=== PATIENT | male | born 1955 | race Caucasian/White ===

== ENCOUNTER 2020-01-15 10:11 | Emergency (ER) | payer OTHER, SELFPAY ==
[2020-01-15 10:13] VITALS: BP 158/103; PULSE 92; RESP 17; TEMP 36.6; O2SAT 97; BMI 27.4
--- NOTE | 2020-01-15 10:28 | CT_ITS ---
STUDY: CT ABDOMEN AND PELVIS WITH CONTRAST REASON FOR EXAM: Male, 64 years old. RLQ PAIN RADIATION DOSAGE (If Supplied By Facility): CTDIvol = ( 13.65 ) mGy, DLP = ( 924.49 ) mGycm TECHNIQUE: Transaxial images were obtained from the dome of the diaphragm to the symphysis pubis with oral contrast. Oral and amp; IV Gastrografin and amp; 100mL Isovue-300 was administered. Sagittal and coronal images were reconstructed. Individualized dose optimization techniques were used for this CT. COMPARISON: None. FINDINGS: There is a 4.5 mm nodule in the posterior aspect of the lingular segment of the left upper lobe The visualized portions of the heart are within normal limits. There is decreased attenuation of the liver consistent with steatosis. Normal gallbladder and extrahepatic biliary system. Normal spleen. Normal pancreas. There is symmetric enlargement of the adrenal glands suggesting adrenal hyperplasia. Normal right kidney. Normal left kidney. Normal visualized stomach. Normal small intestine. There is a 5.3 cm x 5.2 cm x 5.5 cm soft tissue mass involving the cecum. There is evidence of thickening of the haustral pattern of the ascending colon. A neoplastic process should be ruled out. Small lymph nodes are seen in the mesenteric fat in the right lower quadrant. Mild increased markings in the surrounding peritoneal fat. Sigmoid diverticulosis. The appendix appears to be unremarkable. There is diffuse atherosclerotic calcification of the abdominal aorta, without a demonstrated aneurysm. Normal inferior vena cava. There is borderline retroperitoneal lymphadenopathy with enlarged nodes no greater than 10mm in the short axis diameter. Normal urinary bladder. There is enlargement of the prostate gland. It measures 5.6 cm x 5.9 cm. This causes indentation at the bladder base. There are bilateral inguinal hernias containing adipose tissue. Normal osseous structures. CT/Abdomen/Pelvis WITH Contrast IMPRESSION: Mass lesion in the region of the cecum with thickening of the haustral pattern of the ascending colon. A neoplastic process should be ruled out. Prostatic enlargement with indentation at the bladder base. Electronically Signed: Pineda Beasley, at 12:22 EDT , Service support ,
[2020-01-15] MEDS: 0.9% Normal Saline 1,000 ML 1000 ML IV (10:30)
--- NOTE | 2020-01-15 10:30 | ED.VIS.GEN ---
History of Present Illness Chief Complaint: Abd Pain Informant: Patient, PCP Narrative: Patient presents the emergency department on day 3 of right lower quadrant pain. Patient states that last week he had some cabassa and had a couple days of gas. He had spaghetti and had even more gas. On Wednesday he woke with right lower quadrant pain that radiated up towards his epigastrium. He thought that perhaps he was constipated so he took a stool softener which was effective but did not change his pain. He notes that Wednesday the pain was still present but a little bit less. He states he did not have anything to eat on Wednesday or today. He went to his primary care physician's office today was referred to the emergency department. Patient denies any prior abdominal surgeries. He states that 20+ years ago he had a gallbladder attack and states this feels nothing like it. Patient denies any fevers. No urinary symptoms. Past Medical History - Allergies and Home Meds Allergies/Adverse Reactions: Allergies No Known Allergies Allergy (Verified 01/15/20 10:13) Primary Care Physician: Jesus Soliz MD [Primary Care Provider] - Review of Systems General: Denies: Chills, Fever, Sweats Eyes: Denies: Visual changes - bilaterally, Diplopia ENT: Denies: Rhinorrhea, Sore throat Cardiovascular: Denies: Chest pain, Palpitations Respiratory: Denies: Dyspnea, Cough, Dyspnea on exertion Gastrointestinal: Reports: Abdominal pain. Denies: Nausea, Vomiting, Diarrhea, Melena, Hematochezia Genitourinary: Denies: Dysuria, Hematuria, Frequency Musculoskeletal: Denies: Back pain, Extremity Pain Skin: Denies: Rash, Wounds Neurological: Denies: Headache, Weakness, Numbness Physical Exam Vital Signs/Narrative: Vital Signs Temp Pulse Resp BP Pulse Ox 01/15/20 10:13 97.9 F 92 17 158/103 H 97 Inital Vital Signs reviewed: Yes General: Well nourished, Well developed, No Acute Distress Head: Normocephalic, Atraumatic Eyes: Perrl, EOMI ENT: Moist mucous membranes, No rhinorrhea Neck: Supple, Nontender Cardiovascular: Regular rate, Regular rhythm, No murmurs Respiratory: No distress, CTA bilaterally, Chest nontender Abdomen: Soft, Nondistended, Normal bowel sounds, Tender, Guarding Back: Nontender, Normal Inspection Extremities: Nontender, No edema Skin: Normal color, No rash Neurological: Alert, Oriented x3, Cranial nerves II-XII grossly intact, Normal Strength, Normal Sensation Psychological: Normal affect, Normal Mood Diagnostic/Tx/Re-eval - Medical Decision Making Basic labs were negative. Normal white count. CT of the abdomen pelvis with oral and IV contrast was obtained. There is a 5.3 cm x 5.2 cm x 5.5 cm soft tissue mass involving the cecum. There is evidence of thickening of the haustral pattern of the ascending colon. Small lymph nodes are seen in the mesenteric fat in the right lower quadrant. Mild increased markings in the surrounding peritoneal fat noted. The appendix appears unremarkable. Upon receipt of the findings I spoke with the patient and contacted Dr. Crain (approx 1230 hours) and he has come to the emergency department and spoken with the patient. Plan will be a colon prep today with colonoscopy tomorrow. I updated Dr. Soliz who sent the patient in from his office. ED Disposition - Plan for ED Patient: Disposition: Home or Assisted Living Diagnosis: Cecum mass, Acute abdominal pain Referrals: Jesus Soliz MD [Primary Care Provider] - Keep Amy appointment Joey Crain MD [STAFF PHYSICIAN] - Keep [facility] appointment
[2020-01-15 10:39] LABS: Absolute Lymphocyte Count 2.36 X10^3/uL (0.83-4.51); Absolute Neutrophil Count 6.5 X10^3/uL (2.0-7.7); Basophil# 0.06 X10^3/uL; Basophil% 0.6 % (0-1); Eosinophil# 0.24 X10^3/uL; Eosinophils% 2.4 % (0-5); Hematocrit 48.1 % (40-54); Hemoglobin 16.4 g/dL (13.0-16.5); Lymphocyte # 2.36 X10^3/ul (4.0); Lymphocyte % 23.3 % (19-41); Mean Corp Hgb Conc 34.1 g/dL (32-36); Mean Corpuscular Hgb 30.9 pg (27.0-32.0); Mean Corpuscular Volume 90.6 fL (80-94); Mean Platelet Vol. 10.7 fl (6.2-12.0); Monocyte% 8.9 % (0-10); NRBC Flagged by Analyzer 0 % (0-5); Neutrophil # 6.53 X10^3/uL (2.7-7.7); Neutrophil % 64.5 % (47-70); Platelet Count 226 K/mm3 (150-450); RBC Distribution Width CV 13.8 % (11.6-14.6); RBC Distribution Width SD 45.5 fl (35.1-43.9); Red Blood Count 5.31 M/mm3 (4.6-6.2); White Blood Count 10.1 K/mm3 (4.4-11.0)
[2020-01-15 10:54] LABS: ALB/GLOB Ratio 0.8 RATIO (0.9-2.4); AST(SGOT) 16 U/L (15-37); Alanine Aminotransfer ALT/SGPT 21 U/L (16-61); Albumin, Serum 3.7 g/dL (3.2-5.0); Alkaline Phosphatase 110 U/L (45-117); Anion Gap 4 (5-15); BUN 24 mg/dL (7-18); BUN/Creat Ratio 18.5 RATIO (10-20); Calcium,Total 9.3 mg/dL (8.5-10.1); Chloride 108 mmol/L (98-107); EST Glomerular Filtration Rate 59 mL/min (>60); Est Glom Filt Rate - Afr Amer 71 mL/min (>60); Estimated Creatinine Clearance 62.18 ml/min; Globulin 4.5 g/dL (2.2-4.2); Glucose 110 mg/dL (74-106); Lipase 60 U/L (73-393); Potassium 4.5 mmol/L (3.5-5.1); Protein, Total 8.2 g/dL (6.4-8.2); Sodium Level 140 mmol/L (136-145)
[2020-01-15 11:41] LABS: Red Blood Cells-Urine 0 SEEN /hpf (0-5)
[2020-01-15 11:46] LABS: Color, Urine Yellow (Yellow); Glucose, Dipstick Normal (Normal); Ketone-Dipstick 5 mg/dl (Negative); Leukocyte Esterase-Dipstick 25 /ul (Negative); Nitrite-Dipstick Negative (Negative); Occult Blood-Urine Negative /ul (Negative); Protein-Dipstick 15 mg/dl (Negative); Specific Gravity, Urine 1.025 (1.002-1.030); Urine Bilirubin Dipstick Negative (Negative); Urine Clarity Sl. Cloudy (Clear); Urine Urobilinogen 1 mg/dl (Normal)
[2020-01-15 11:53] LABS: Bacteria RARE /hpf (None Seen); Hyaline Cast 0-5 SEEN /lpf (0-5); Mucous, Urine 2+ /hpf (<or=2+); Squamous Epithelial Cells - UA 0-5 SEEN /hpf (0-5); White Blood Cells 0-5 SEEN /hpf (0-5)
[2020-01-15 13:56] VITALS: BP 173/101; PULSE 85; RESP 18; O2SAT 94
--- NOTE | 2020-01-15 14:06 | HP.PCM_ITS ---
Problem List (1) Acute abdominal pain Status: Acute (2) Cecum mass Status: Acute History of Present Illness Date of Admission: 01/15/20 The patient is a 64 year old M presents to the emergency room with right lower quadrant pain of 3 days durations. There is no radiation of pain. The patient is not having any blood in his stool or nausea or vomiting. The patient reports that he had a colonoscopy 1 year ago which was abnormal and the area of the ileocecal valve and he was recommended to have a CT scan with contrast but he refused. They recommended repeating colonoscopy 1 year later which was this past October. Past Medical History Allergies No Known Allergies Allergy (Verified 01/15/20 10:13) Home Medications: Ambulatory Orders Medication Instructions Recorded NK 01/15/20 Surgical History: no surgical history Smoking Status: Current every day smoker - *Family History Maternal History Items: No pertinent history Review of Systems Constitutional: Denies: Anorexia, Chills, Fever HEENT: Denies: Difficulty Swallowing Cardiovascular: Denies: Chest Pain Respiratory: Denies: Cough, Shortness of Breath Gastrointestinal: Reports: Abdominal Pain. Denies: Constipation, Diarrhea, Hematemesis, Hematochezia, Nausea, Melena, Vomiting Skin: Denies: Jaundice Neurological: Denies: Balance problems Hematologic/ Lymphatic: Denies: Anemia VTE Information - Inpt Only VTE Present on Admission: No VTE Mechan Device Prophylaxis: SCD's - Physical Exam Vitals/I&O's: Vital Signs Temp Pulse Resp BP Pulse Ox 97.9 F 85 18 173/101 H 94 01/15/20 10:13 01/15/20 13:56 01/15/20 13:56 01/15/20 13:56 01/15/20 13:56 Oxygen Delivery Method Room Air Weight: 202 lb 9.677 oz Body Mass Index (BMI) 27.4 Intake and Output for Last 24 Hours 01/13/20 01/14/20 01/15/20 23:59 23:59 23:59 Intake Total 1000 / 1000 Balance 1000 / 1000 General: Alert, Oriented x3 Neck: No JVD Lungs: Normal air movement Cardiovascular: Regular rate, Regular Rhythm Abdomen: Soft, Non-Distended, Tender Musculoskeletal: No Muscle Wasting Neurological: Cranial nerves II-XII grossly intact Psych/Mental Status: Normal Affect Laboratory Results 01/15/20 10:30: WBC 10.1, RBC 5.31, Hgb 16.4, Hct 48.1, MCV 90.6, MCH 30.9, MCHC 34.1, RDW Std Deviation 45.5 H, RDW Coeff of Carlos Manuel 13.8, Plt Count 226, MPV 10.7, Immature Gran % (Auto) 0.300, Neut % (Auto) 64.5, Lymph % (Auto) 23.3, [place] % (Auto) 8.9, Eos % (Auto) 2.4, Baso % (Auto) 0.6, Absolute Neuts (auto) 6.5, Absolute Lymphs (auto) 2.36, Nucleated RBC % 0 01/15/20 10:30: Sodium 140, Potassium 4.5, Chloride 108 H, Carbon Dioxide 28.0, Anion Gap 4 L, BUN 24 H, Creatinine 1.30, Estim Creat Clear Calc 62.18, Est GFR (MDRD) Af Amer 71, Est GFR (MDRD) Non-Af 59 L, BUN/Creatinine Ratio 18.5, Glucose 110 H, Calcium 9.3, Total Bilirubin 0.60, AST 16, ALT 21, Alkaline Phosphatase 110, Total Protein 8.2, Albumin 3.7, Globulin 4.5 H, Albumin/G lobulin Ratio 0.8 L, Lipase 60 L 01/15/20 11:38: Urine Color Yellow, Urine Clarity Sl. Cloudy, Urine pH 5.0, Ur Specific [place] 1.025, Urine Protein 15 H, Urine Glucose (UA) Normal, Urine Ketones 5 H, Urine Occult Blood Negative, Urine Nitrite Negative, Urine Bilirubin Negative, Urine Urobilinogen 1 H, Ur Leukocyte Esterase 25 H, Urine RBC 0 SEEN, Urine WBC 0-5 SEEN, Ur Squamous Epith Cells 0-5 SEEN, Urine Bacteria RARE, Hyaline Casts 0-5 SEEN, Urine Mucus 2+ Clinical Impression(s) from Imaging Studies Abdomen/Pelvis CT 01/15/20 10:28 IMPRESSION: Mass lesion in the region of the cecum with thickening of the haustral pattern of the ascending colon. A neoplastic process should be ruled out. Prostatic enlargement with indentation at the bladder base. Electronically Signed: Pineda Beasley, at 12:22 EDT , Service support , Assessment/Plan All Active Problems Cecum mass (Acute) Acute abdominal pain (Acute) 64-year-old male with possible right lower quadrant mass 1. The patient has right lower quadrant pain of 3-day duration. CT scan reveals thickening in the right lower quadrant and a possible cecal mass. There is no sign of obstruction. The patient reports having a colonoscopy 1 year ago and was recommended to have one this past October but did not. The patient wants to go home and come back tomorrow for his colonoscopy. I have given him bowel prep instructions and I discussed colonoscopy with him. He will have a colonoscopy tomorrow at 11 AM. Hemoglobin is normal. 2. I explained endoscopy in detail to the patient. I explained the risks including but not limited to stroke or heart attack with anesthesia, perforation of the GI tract, bleeding, infection. I explained that any of these could necessitate further emergency surgery. The patient understands and all questions were answered sufficiently. The patient wishes to proceed with procedure. Joey Crain MD Pager: [facility] [address] [place] [address] [address] [place] [address] Office:
== END 2020-01-15 13:57 | disposition home or self-care (01) ==
PROVIDERS: Emergency Provider Emergency Medicine; PCP Family Medicine
DX: K63.9 Disease of intestine, unspecified (principal); R10.31 Right lower quadrant pain; N40.0 Benign prostatic hyperplasia without lower urinary tract symptoms; Z79.899 Other long term (current) drug therapy; F17.200 Nicotine dependence, unspecified, uncomplicated
CPT/HCPCS: 74177; 80053; 81001; 83690; 85025; 96360; 96361; 99283; J7030; Q9967; A4216

== ENCOUNTER 2020-01-16 09:48 | Day surgery (SDC) | payer OTHER, SELFPAY ==
[2020-01-15 10:13] VITALS: BMI 27.4
[2020-01-16] VITALS (7 sets, daily range): BP systolic 116–131; BP diastolic 87–95; PULSE 74–93; RESP 16–18; TEMP 36.3–36.9; O2SAT 92–97; BMI 26.6
--- NOTE | 2020-01-16 10:16 | PCM.HP.BLA ---
Problem List (1) Cecum mass Status: Acute History and Physical Date of Admission: 01/16/20 History and Physical 01/15/20 1406 MR#: [id number] Acct: [id number] Name: MALIHA PEREZ III Rep #: [id number] : 1955 64 From: Joey Crain MD PCP: Dr. Jesus Soliz MD Status: DEP ER Y Location: ED Problem List (1) Acute abdominal pain Status: Acute (2) Cecum mass Status: Acute History of Present Illness Date of Admission: 01/15/20 The patient is a 64 year old M presents to the emergency room with right lower quadrant pain of 3 days durations. There is no radiation of pain. The patient is not having any blood in his stool or nausea or vomiting. The patient reports that he had a colonoscopy 1 year ago which was abnormal and the area of the ileocecal valve and he was recommended to have a CT scan with contrast but he refused. They recommended repeating colonoscopy 1 year later which was this past October. Past Medical History Allergies No Known Allergies Allergy (Verified 01/15/20 10:13) Home Medications: Ambulatory Orders Medication Instructions Recorded NK 01/15/20 Surgical History: no surgical history Smoking Status: Current every day smoker - *Family History Maternal History Items: No pertinent history Review of Systems Constitutional: Denies: Anorexia, Chills, Fever HEENT: Denies: Difficulty Swallowing Cardiovascular: Denies: Chest Pain Respiratory: Denies: Cough, Shortness of Breath Gastrointestinal: Reports: Abdominal Pain. Denies: Constipation, Diarrhea, Hematemesis, Hematochezia, Nausea, Melena, Vomiting Skin: Denies: Jaundice Neurological: Denies: Balance problems Hematologic/ Lymphatic: Denies: Anemia VTE Information - Inpt Only VTE Present on Admission: No VTE Mechan Device Prophylaxis: SCD's - Physical Exam Vitals/I&O's: Vital Signs Temp Pulse Resp BP Pulse Ox 97.9 F 85 18 173/101 H 94 01/15/20 10:13 01/15/20 13:56 01/15/20 13:56 01/15/20 13:56 01/15/20 13:56 Oxygen Delivery Method Room Air Weight: 202 lb 9.677 oz Body Mass Index (BMI) 27.4 Intake and Output for Last 24 Hours 01/13/20 01/14/20 01/15/20 23:59 23:59 23:59 Intake Total 1000 / 1000 Balance 1000 / 1000 General: Alert, Oriented x3 Neck: No JVD Lungs: Normal air movement Cardiovascular: Regular rate, Regular Rhythm Abdomen: Soft, Non-Distended, Tender Musculoskeletal: No Muscle Wasting Neurological: Cranial nerves II-XII grossly intact Psych/Mental Status: Normal Affect Laboratory Results 01/15/20 10:30: WBC 10.1, RBC 5.31, Hgb 16.4, Hct 48.1, MCV 90.6, MCH 30.9, MCHC 34.1, RDW Std Deviation 45.5 H, RDW Coeff of Carlos Manuel 13.8, Plt Count 226, MPV 10.7, Immature Gran % (Auto) 0.300, Neut % (Auto) 64.5, Lymph % (Auto) 23.3, [place] % (Auto) 8.9, Eos % (Auto) 2.4, Baso % (Auto) 0.6, Absolute Neuts (auto) 6.5, Absolute Lymphs (auto) 2.36, Nucleated RBC % 0 01/15/20 10:30: Sodium 140, Potassium 4.5, Chloride 108 H, Carbon Dioxide 28.0, Anion Gap 4 L, BUN 24 H, Creatinine 1.30, Estim Creat Clear Calc 62.18, Est GFR (MDRD) Af Amer 71, Est GFR (MDRD) Non-Af 59 L, BUN/Creatinine Ratio 18.5, Glucose 110 H, Calcium 9.3, Total Bilirubin 0.60, AST 16, ALT 21, Alkaline Phosphatase 110, Total Protein 8.2, Albumin 3.7, Globulin 4.5 H, Albumin/Globulin Ratio 0.8 L, Lipase 60 L 01/15/20 11:38: Urine Color Yellow, Urine Clarity Sl. Cloudy, Urine pH 5.0, Ur Specific [place] 1.025, Urine Protein 15 H, Urine Glucose (UA) Normal, Urine Ketones 5 H, Urine Occult Blood Negative, Urine Nitrite Negative, Urine Bilirubin Negative, Urine Urobilinogen 1 H, Ur Leukocyte Esterase 25 H, Urine RBC 0 SEEN, Urine WBC 0-5 SEEN, Ur Squamous Epith Cells 0-5 SEEN, Urine Bacteria RARE, Hyaline Casts 0-5 SEEN, Urine Mucus 2+ Clinical Impression(s) from Imaging Studies Abdomen/Pelvis CT 01/15/20 10:28 IMPRESSION: Mass lesion in the region of the cecum with thickening of the haustral pattern of the ascending colon. A neoplastic process should be ruled out. Prostatic enlargement with indentation at the bladder base. Electronically Signed: Pineda Beasley, at 12:22 EDT , Service support , Assessment/Plan All Active Problems Cecum mass (Acute) Acute abdominal pain (Acute) 64-year-old male with possible right lower quadrant mass 1. The patient has right lower quadrant pain of 3-day duration. CT scan reveals thickening in the right lower quadrant and a possible cecal mass. There is no sign of obstruction. The patient reports having a colonoscopy 1 year ago and was recommended to have one this past October but did not. The patient wants to go home and come back tomorrow for his colonoscopy. I have given him bowel prep instructions and I discussed colonoscopy with him. He will have a colonoscopy tomorrow at 11 AM. Hemoglobin is normal. 2. I explained endoscopy in detail to the patient. I explained the risks including but not limited to stroke or heart attack with anesthesia, perforation of the GI tract, bleeding, infection. I explained that any of these could necessitate further emergency surgery. The patient understands and all questions were answered sufficiently. The patient wishes to proceed with procedure. Joey Crain MD Pager: [facility] [address] [place] [address], [address] [place] [address] Office: Essential Procedure Criteria Procedure Essential: Yes Criteria Note: On 11/21/2019 the [place] Department of Health ([facility]) Public Order signed by [facility] Director Saranya Nobles M.D., regarding the Management of Non-Essential Surgeries and Procedures for the purpose of preserving Personal Protective Equipment (PPE) and critical hospital capacity and resources within [place] went into effect as of 11/22/2019 at 5:00PM. According to the [facility] Public Order: This action will remain in full force and effect until the State of Emergency declared by the Governor no longer exists or the Director of the [facility] rescinds or modifies this Order.. This OD order stated all non-essential or elective surgeries and procedures that utilize PPE should be delayed unless there is undue risk to the current or future health of a patient. After reviewing the aforementioned [facility] Public Order and the patients clinical case, I have determined that the scheduled procedure meets the criteria to go forward. Risk to Patient if Procedure Delayed: Risk of metastasis or progression of staging if delayed
--- NOTE | 2020-01-16 11:00 | COLBX_PTH ---
PATIENT: MALIHA PEREZ III LOC: EN U#:[id number] AGE/SX: 64/M ROOM: RE01/16/[address]: Dr. Joey Crain MD : 1955 BED: DIS: 01/16/2020 SPEC #: [id number] RECD: 01/16/20 12:48 STATUS: ALVARO QUINONES #: [id number] KEVIN: 01/16/20 11:[address]: Joey Crain DEPT: SURGICAL PATHOLOGY RECD BY: Carolyn Webb ENTERED: 01/17/20 09:37 SP TYPE: COLON BX OTHR DR: Dr. Jesus Soliz MD Tissues: Ileum, NOS Procedures: Surgery Specimen Level IV HEADER OPERATION: Colonoscopy (MAC) PRE-OP DIAGNOSIS: Cecal mass, abdomen pain TISSUE SUBMITTED: Ileocecal valve biopsy MICROSCOPIC DIAGNOSIS Ileocecal valve, biopsy: Focal ulceration and associated mild acute colitis. See comment. AM:christen 01/18/20 COMMENT Ischemic change with associated colitis cannot be excluded. There is no evidence of malignancy. Clinical correlation is necessary. MICROSCOPIC DESCRIPTION Slides are reviewed. GROSS DESCRIPTION Received in fixative is one container labeled with the patient's name and designated ileocecal valve biopsy. The specimen consists of multiple irregular fragments of light alvarez soft tissue that in aggregate measure 2.2 x 0.6 x 0.1 cm. The specimen is totally submitted in one cassette. / AM:christen 01/17/20 TC:2 CPT: 58307
--- NOTE | 2020-01-16 11:23 | OP.CCLET_ITS ---
01/16/2020 Jesus Soliz Re : Colonoscopy procedure for Perry Chavez Dear Martínez This procedure was performed on Thursday, January 16, 2020. 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 Biopsied. - The examination was otherwise normal on direct and retroflexion views. Recommendations : - Discharge patient to home. - Resume previous diet. - Continue present medications. - Await pathology results. - Repeat colonoscopy for surveillance based on pathology results. - Return to my office in 1 week. My findings are described in the full procedure note, which is enclosed. If I can be of further assistance, please feel free to contact me at Doctor phone number(s): , Work: . Sincerely, Joey Crain MD 01/16/2020 11:23:07 AM This report has been signed electronically.
--- NOTE | 2020-01-16 11:23 | OP.COLON_ITS ---
Patient Name: Perry Chavez Procedure Date: 01/16/2020 10:10 AM Date of : 1955 Age: 64 Procedure: Colonoscopy Indications: Abnormal CT of the GI tract Providers: Joey Crain MD Medicines: Monitored Anesthesia Care Patient Profile: This is a 64 year old male. Refer to note in patient chart for documentation of history and physical. Last Colonoscopy: 1 year ago. Complications: No immediate complications. Estimated blood loss: Minimal. Procedure: Pre-Anesthesia Assessment: - Prior to the procedure, a History and Physical was performed, and patient medications and allergies were reviewed. The patient's tolerance of previous anesthesia was also reviewed. The risks and benefits of the procedure and the sedation options and risks were discussed with the patient. All questions were answered, and informed consent was obtained. Prior Anticoagulants: The patient has taken no previous anticoagulant or antiplatelet agents. After reviewing the risks and benefits, the patient was deemed in satisfactory condition to undergo the procedure. After I obtained informed consent, the scope was passed under direct vision. Throughout the procedure, the patient's blood pressure, pulse, and oxygen saturations were monitored continuously. The Colonoscope was introduced through the anus and advanced to the terminal ileum. The colonoscopy was performed without difficulty. The patient tolerated the procedure well. The quality of the bowel preparation was good. Scope In: 10:58:47 AM Scope Withdrawal Time 0 hours 11 minutes 53 seconds Scope Out: 11:14:50 AM Total Procedure Duration Time 0 hours 16 minutes 3 seconds Findings: A fungating partially obstructing large mass was found at the ileocecal valve. The mass was circumferential. No bleeding was present. This was biopsied with a cold forceps for histology. The exam was otherwise without abnormality on direct and retroflexion views. 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 Biopsied. - The examination was otherwise normal on direct and retroflexion views. Recommendation: - Discharge patient to home. - Resume previous diet. - Continue present medications. - Await pathology results. - Repeat colonoscopy for surveillance based on pathology results. - Return to my office in 1 week. Procedure Code(s): --- Professional --- 48134, Colonoscopy, flexible; with biopsy, single or multiple Diagnosis Code(s): --- Professional --- D49.0, Neoplasm of unspecified behavior of digestive system K56.690, Other partial intestinal obstruction R93.3, Abnormal findings on diagnostic imaging of other parts of digestive tract CPT copyright 2017 [employer]. All rights reserved. The codes documented in this report are preliminary and upon remote inpatient coder review may be revised to meet current compliance requirements. Joey Crain MD 01/16/2020 11:23:07 AM This report has been signed electronically. Number of Addenda: 0 Note Initiated On: 01/16/2020 10:10 AM
[2020-01-17 05:06] LABS: Carcinoembryonic Antigen 2.3 ng/mL (0.0-4.7)
== END 2020-01-16 12:22 | disposition home or self-care (01) ==
LOC: EN 09:51 → AC 09:51
PROVIDERS: PCP Family Medicine; Referring Provider Family Medicine; Visit Provider Surgery
PROC: 0DJD8ZZ Inspection of Lower Intestinal Tract, Via Natural or Artificial Opening Endoscopic (ICD-10-PCS; CPT 45378; principal; 2020-01-16 10:55)
DX: D49.0 Neoplasm of unspecified behavior of digestive system (principal); K63.9 Disease of intestine, unspecified; K56.690 Other partial intestinal obstruction; K52.9 Noninfective gastroenteritis and colitis, unspecified; R93.3 Abnormal findings on diagnostic imaging of other parts of digestive tract; N40.0 Benign prostatic hyperplasia without lower urinary tract symptoms; F17.200 Nicotine dependence, unspecified, uncomplicated; Z79.899 Other long term (current) drug therapy
CPT/HCPCS: 45380; 36415; 82378; 88305; J7120

== ENCOUNTER 2020-02-08 06:43 | Inpatient (IN) | payer OTHER, MEDICARE, SELFPAY ==
[2020-01-23 14:01] VITALS: BMI 27.6
--- NOTE | 2020-01-24 08:17 | HP_ITS ---
Intake Vital Signs 01/23/20 Height 6 ft 01/23/20 Weight: 204 lb 01/23/20 BMI 27.6 01/23/20 BP 113/84 H 01/23/20 Blood Pressure Location Rt brachial 01/23/20 Position Sitting 01/23/20 Respiration 18 01/23/20 Pulse 83 01/23/20 Temp 97.9 F 01/23/20 Temp Source Temporal 01/23/20 BMI 26.6 Intake Visit Reasons: C-SCOPE RESULTS & DISCUSS SURGERY Contact Center Associate Required: No Is patient in pain?: No Allergies No Known Allergies Allergy (Verified 01/23/20 14:01) Medications Albuterol Inhaler [Ventolin Hfa (SP)] 2 puff INHALATION Q6H PRN PRN 01/15/20 [History Confirmed 01/15/20] Budesonide/Formoterol 160/4.5 [Symbicort 160/4.5 Mcg Inhaler (SP)] 2 puff INHALATION QHS 01/15/20 [History Confirmed 01/15/20] metoprolol tartrate 50 mg tablet 50 mg PO DAILY 01/23/20 [History Confirmed 01/23/20] PFSH Medical History COPD (chronic obstructive pulmonary disease) (Chronic) Hypertension (Chronic) Surgical History Status post skin graft (Acute) Family History Father CAD (coronary artery disease) Social History (Updated 01/24/20 @ 08:[address] Joey Crain MD) Smoking Status: Current every day smoker alcohol intake: never HPI HPI HPI: MALIHA PEREZ, is a 64 M who presents to the office today for HPI HPI Surgical H&P: Yes HPI: MALIHA PEREZ, is a 64 M who presents to the office today for Follow-up after colonoscopy. Patient reports he is still having weight loss but no abdominal pain at this time. Patient reports that his father had a hemicolectomy for a similar circumstance where there was an unknown mass in the colon and it turned out not to be cancerous.The patient does not describe any blood in his stool or diarrhea. ROS General General: Yes weight change; no fatigue Musc Musculoskeletal: Yes back problems Cardio Cardiovascular: No murmur, pacemaker, heart disease, atrial fibrillation, high blood pressure, heart attack, heart stent, palpitations, shortness of breat with exertion or chest pain Psych Psychiatric: No depression or anxiety Resp Respiratory: No shortness of breath, No sleep apnea, No cough, Yes COPD, No asthma, No emphysema, No wheezing Gastro Gastrointestinal: Yes abdominal pain, No nausea or vomiting, No diarrhea, No constipation, No blood in stool, No acid reflux, Yes hemorrhoids, No ulcers, Yes gallbladder problem, No black,tarry stools Homero Hematologic: No blood thinners Exam Const General: cooperative Orientation: alert, oriented x3 Resp Effort & Inspection: normal respiratory effort Auscultation: clear to auscultation bilaterally Cardio Rate: regular rate Rhythm: regular rhythm Heart Sounds: no murmurs GI Inspection: non-distended Palpation: soft, nontender Assessment & Plan Problems 1. 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 The patient had a CT scan once he was in the emergency room the night before. The CT scan revealed a mass in the cecum with lymphadenopathy in the mesentery. During colonoscopy the patient had a mass there was cecal valve and it was firm during biopsy. The mass was able to be traversed and the distal ileum appeared normal. Pathology from his biopsies only revealed colitis. There was no malignancy identified. The patient notes that he had an abnormal colonoscopy 1 year ago with a mass of the ileocecal valve and he was recommended to have a CT at that time but never had it. I am unsure as to the etiology of his cecal mass. I am unable to fully say that this is not malignant in nature. I discussed this with the patient in detail and I did offer him a right hemicolectomy versus continued observation but I do believe that if this was there a year ago it is not going away and it is partially obstructing with constriction of the ileocecal valve. I discussed laparoscopic right hemicolectomy with the patient in detail. I discussed the risks including but not limited to bleeding, infection, injury to surrounding organs such as the ureter, bladder, bowels. I also discussed ERAS protocol with him. I will order him a mechanical and antibiotic bowel prep and schedule him for a laparoscopic right hemicolectomy. We discussed the current risks associated with COVID-19. While it is understood that there is a community spread of COVID-19, the risk of dick COVID-19 while at [facility] ([facility]) is very low; however, the risk cannot be completely mitigated because of the community spread of the disease. We discussed in detail the risk of exposure to and/or potential harm posed by the COVID-19 virus with having a surgery/procedure at this time versus the risk of delaying the surgery/procedure. It is not possible to know either the risk of delaying the surgery or procedure or chance of getting an infection with perfect accuracy, but a joint decision was made to proceed at this time with the scheduled surgery/procedure as indicated on the consent form. Patient was notified that we will need to comply with any screening or testing [facility] wishes to perform or that surgery may be delayed for any positive results. 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 There are no clinical changes since date of exam.
--- NOTE | 2020-02-06 13:53 | EKG12_ITS ---
Test Reason : PRE OP Blood Pressure : / mmHG Vent. Rate : 076 BPM Atrial Rate : 076 BPM P-R Int : 180 ms QRS Dur : 084 ms QT Int : 372 ms P-R-T Axes : 065 070 071 degrees QTc Int : 418 ms Normal sinus rhythm Normal ECG Confirmed by DEAN ALMENDAREZ, TRUNG ([id number]), senior editor YANETH KULKARNI ([id number]) on 02/07/2020 9:30:58 AM Referred By: Joey Crain Confirmed By:TRUNG MORAN MD
[2020-02-08] VITALS (16 sets, daily range): BP systolic 117–161; BP diastolic 64–91; PULSE 61–93; RESP 16–20; TEMP 36.1–36.8; O2SAT 90–98; BMI 26.6
--- NOTE | 2020-02-08 | COL._PTH ---
PATIENT: MALIHA PEREZ III LOC: MS3 U#:[id number] AGE/SX: 64/M ROOM: MS314 RE02/08/[address]: Dr. Joey Crain MD : [id number] BED: 1 DIS: 02/11/2020 SPEC #: [id number] RECD: 02/08/20 13:16 STATUS: ALVARO QUINONES #: [id number] KEVIN: 02/08/20 00:[address]: Joey Crain DEPT: SURGICAL PATHOLOGY RECD BY: Rajeev Fuentes ENTERED: 02/08/20 13:16 SP TYPE: COLON OTHR DR: Dr. Jesus Soliz MD Tissues: Colon, NOS Procedures: Surgery Specimen Level V HEADER OPERATION: ERAS, laparoscopic hemicolectomy PRE-OP DIAGNOSIS: Cecum mass TISSUE SUBMITTED: Right hemicolectomy MICROSCOPIC DIAGNOSIS Right colon, hemicolectomy: Encapsulated fecalith (2 cm in diameter). Mucosal ulceration with associated acute and chronic inflammation and early granulation. Small bowel with focal diverticulum and benign lymphoid hyperplasia. Large bowel with focal hyperplastic change in area of fecalith. Margins of excision with no pathologic change. Twenty out of twenty lymph nodes, negative for malignancy. AM:christen 02/12/20 COMMENT The fecalith is encapsulated within the mucosa and submucosal tissue. There is no evidence of malignancy. Clinical correlation is suggested. Case has been reviewed in consultation with Dr. Farfan who concurs with the above diagnosis. IDC:SJ MICROSCOPIC DESCRIPTION Slides are reviewed. GROSS DESCRIPTION Received in fixative is one container labeled with the patient's name and designated right meng-colectomy. The specimen consists of a segment of cecum with ascending colon with attached pericolonic adipose tissue and segment of small intestine with attached mesenteric tissue and appendix. The cecum with ascending colon measures 15 cm in length and segment of small intestine measures 15?cm in length. The appendix measures 2.5 cm in length and 0.7 cm in diameter. The appendicular lumen appears to be completely obliterated in the distal half. Also present in the container is a detached piece of mucosal tissue measuring 13 x 0.5 x 0.3 cm. A few justino are noted. The colectomy specimen shows both resection margins are stapled. The lumen contains a small amount of fecal material. 11 cm away from the distal resection margin close to the ileocecal valve, a raised, indurated area is noted measuring 3?x 2 cm. Sections of this area reveal a fecalith completely enclosed by mucosa measuring 2?cm in greatest dimension. Wire Brush Operator sections are submitted as follows: 1 - detached piece of mucosal tissue, 2??appendix, entirely submitted. Pericolonic adipose tissue is placed in lymph node revealing solution. More dictation will follow after overnight fixation. / SJ:christen 02/08/20 No additional mucosal lesions are identified. The bowel wall underneath the ileocecal mass is markedly thickened. The pericolonic adipose tissue shows multiple lymph nodes. The largest lymph node measures 1 cm in greatest dimension. More sales representative public utilities sections are submitted as follows: 3??proximal and distal resection margins, 46 - area of fecalith, 7-12 - ileocecal valve, 13 - sales representative public utilities sections, small and large intestine,14 - multiple lymph nodes, 15 - one bisected lymph node, 16 - one bisected lymph node, 16 - one bisected lymph node, 17 - one serially sectioned lymph node, 18 - multiple lymph nodes, 19 - one bisected lymph node, 20 - one bisected lymph node, 21 - multiple lymph nodes, 22?- one bisected lymph node, 23 - one bisected lymph node. / SJ:christen 02/09/20 TC:2 CPT: 11898
[2020-02-08] MEDS: Gabapentin 600 MG Tablet PO (07:00)
[2020-02-08] MEDS: Lactated Ringers 1,000 ML 40 ML IV ×3 (07:17→15:44)
[2020-02-08] MEDS: Acetaminophen 500 MG Tablet 1000 MG PO ×3 (07:18→23:31)
[2020-02-08 07:46] LABS: Bedside Glucose 134 mg/dL (70-110)
[2020-02-08 08:01] LABS: Magnesium 1.9 mg/dL (1.6-2.6)
[2020-02-08] MEDS: Lidocaine/D5W 2,000 MG/250 ML IV.SOLN 26.3 MG IV (10:30)
[2020-02-08] MEDS: BUPIVACAINE LIPOSOME/PF 20 ML VIAL OPERA.SITE (11:30)
[2020-02-08] MEDS: Bupivacaine 0.25% 30 ML Vial (11:30)
[2020-02-08] MEDS: Ketorolac 30 MG/ML Syringe IV (12:00)
--- NOTE | 2020-02-08 12:39 | OP.PCM_ITS ---
Problem List (1) Cecum mass Status: Acute Report of Operation Date of Procedure: 02/08/20 Pre-Operative Diagnosis: Cecal mass Post-Operative Diagnosis: Same Surgery/Procedure Performed:: Laparoscopic right hemicolectomy Specimen's removed: Right colon Description of Procedure: Patient was brought to the operating room and general anesthesia was induced. A Meadows catheter was placed and there was clear urine returned. The abdomen was prepped and draped in usual sterile fashion. A small midline incision was made superior to the umbilicus and deepened to the fascia. The fascia was elevated and incised as was the peritoneum. A 12 mm port was placed into this incision and the balloon was inflated and the abdomen was inflated to 15 mmHg. Next the abdomen was inspected and appeared normal with no signs of metastasis. Under laparoscopic visualization a tap block was performed bilaterally using a mixture of Marcaine saline and Exparel. Next under direct visualization a 5 mm port was placed in the left lateral abdominal sidewall as well as the left lower quadrant. The patient was placed in Trendelenburg and the terminal ileum was located and followed to the cecum. The cecum was freed from its lateral attachments using Enseal. The colon was then medialized superiorly until the hepatic flexure was reached. The hepatic flexure was taken down. Next the ports were removed and a midline incision was extended in the upper abdomen. Wound protector was placed in the colon was delivered through this incision. The right colon's pedicle was identified and the peritoneum was scored. The artery and vein were each clamped and divided. Suture ligatures were placed on each vessel. There was good hemostasis. Next the transverse colon was inspec whit and the middle colic vessel was located. Just proximal to this vessel a window was made in the mesentery and stapler was used to divide the transverse colon. Using Enseal the mesentery to the right colon was taken down to the pedicle. Next the terminal ileum was divided in the same fashion. The specimen was sent. The abdomen was inspected and there was no bleeding. Next using a DALLIN stapler the terminal ileum was stapled to the transverse colon and TX 60 stapler was used to close the enterotomy. Crotch suture was placed with 3-0 silk. The mesenteric defect was closed with a running 3-0 Vicryl suture. The bowel was returned into the abdomen and the omentum was spread across the bowel and the anterior abdomen. The wound retractor was removed and the gown and gloves were changed. Next the fascia was closed with running PDS suture from the top and bottom meeting in the middle. The skin was anesthetized once more with the Marcaine and Exparel mixture. The subcutaneous incision was irrigated and suctioned and closed with interrupted 4-0 Monocryl sutures. Steri-Strips were then placed on the incisions as well as bandages. Patient was awoken and taken to PACU in stable condition and Meadows was removed. Patient tolerated the procedure well. - Admit VTE Documentation VTE Mechan Device Prophylaxis: SCD's
[2020-02-08] MEDS: Budesonide Respules 0.5 MG/2 ML AMPUL.NEB. INHALATION (18:38)
[2020-02-08] MEDS: Albuterol 2.5 MG/3 ML VIAL.NEB. INHALATION (18:38)
[2020-02-08] MEDS: Metoprolol Tartrate 50 MG Tablet PO (20:29)
[2020-02-08] MEDS: Ketorolac 15 MG/ML Vial IV (20:29)
[2020-02-08] MEDS: Docusate Sodium 100 MG Capsule PO (20:30)
--- NOTE | 2020-02-08 20:40 | NURSING ---
Pt up ambulating in leger at this time with DIAGNOSTICS TECH.
--- NOTE | 2020-02-08 22:05 | NURSING ---
Pt up ambulating in hallway at this time with CHIEF PRIVACY OFFICER.
[2020-02-09] VITALS (9 sets, daily range): BP systolic 110–127; BP diastolic 67–87; PULSE 51–87; RESP 16–20; TEMP 36.6–36.9; O2SAT 91–98; BMI 26.6
--- NOTE | 2020-02-09 00:54 | NURSING ---
Pt up ambulating in halls at this time with TENTER FEEDER.
--- NOTE | 2020-02-09 03:20 | NURSING ---
Pt up ambulating in halls at this time
[2020-02-09] MEDS: Ketorolac 15 MG/ML Vial IV (03:40)
[2020-02-09] MEDS: Acetaminophen 500 MG Tablet 1000 MG PO ×2 (05:23→12:03)
[2020-02-09 06:05] LABS: Hematocrit 39.9 % (40-54); Mean Corp Hgb Conc 32.6 g/dL (32-36); Mean Corpuscular Hgb 30.1 pg (27.0-32.0); Mean Corpuscular Volume 92.4 fL (80-94); Mean Platelet Vol. 10.6 fl (6.2-12.0); Platelet Count 217 K/mm3 (150-450); RBC Distribution Width CV 14.5 % (11.6-14.6); Red Blood Count 4.32 M/mm3 (4.6-6.2); White Blood Count 15.9 K/mm3 (4.4-11.0)
[2020-02-09 06:27] LABS: Anion Gap 9 (5-15); BUN 21 mg/dL (7-18); Calcium,Total 8.7 mg/dL (8.5-10.1); Chloride 104 mmol/L (98-107); Creatinine, Serum 1.31 mg/dL (0.70-1.30); EST Glomerular Filtration Rate 58 mL/min (>60); Est Glom Filt Rate - Afr Amer 71 mL/min (>60); Glucose 132 mg/dL (74-106); Potassium 4.9 mmol/L (3.5-5.1); Sodium Level 135 mmol/L (136-145)
[2020-02-09] MEDS: Budesonide Respules 0.5 MG/2 ML AMPUL.NEB. INHALATION ×2 (07:12→19:10)
[2020-02-09] MEDS: Albuterol 2.5 MG/3 ML VIAL.NEB. INHALATION ×3 (07:12→19:09)
[2020-02-09] MEDS: Docusate Sodium 100 MG Capsule PO ×2 (09:14→21:57)
[2020-02-09] MEDS: Enoxaparin 40 MG/0.4 ML Syringe SC (09:14)
--- NOTE | 2020-02-09 09:40 | PN.SURG_ITS ---
Subjective: Patient reports he is doing well with minimal pain. No nausea or vomiting. He has been urinating well but not passing any flatus. He is belching. - Physical Exam Vitals/I&O's: Vital Signs Temp Pulse Resp BP Pulse Ox 98.3 F 58 L 18 113/81 H 94 02/09/20 09:06 02/09/20 09:06 02/09/20 09:06 02/09/20 09:06 02/09/20 09:06 Oxygen Flow Rate (L/min) 6 Oxygen Delivery Method Room Air Weight: 195 lb 15.855 oz Body Mass Index (BMI) 26.6 Intake and Output for Last 24 Hours 02/07/20 02/08/20 02/09/20 23:59 23:59 23:59 Intake Total 3192.32 / 3192.32 986 / 986 Output Total 650 / 650 425 / 425 Balance 2542.32 / 2542.32 561 / 561 General: Alert, Oriented x3 Lungs: Normal air movement Cardiovascular: Regular rate, Regular Rhythm Abdomen: Soft, Non Tender, Non-Distended Laboratory Results 02/09/20 05:46: WBC 15.9 H, RBC 4.32 L, Hgb 13.0, Hct 39.9 L, MCV 92.4, MCH 30.1, MCHC 32.6, RDW Std Deviation 49.0 H, RDW Coeff of Carlos Manuel 14.5, Plt Count 217, MPV 10.6 02/09/20 05:46: Sodium 135 L, Potassium 4.9, Chloride 104, Carbon Dioxide 22.0, Anion Gap 9, BUN 21 H, Creatinine 1.31 H, Estim Creat Clear Calc 61.70, Est GFR (MDRD) Af Amer 71, Est GFR (MDRD) Non-Af 58 L, BUN/Creatinine Ratio 16.0, Glucose 132 H, Calcium 8.7 Current Medications Acetaminophen (Tylenol) 1,000 mg PO Q6 [facility] Last Admin: 02/09/20 05:23 Dose: 1,000 mg Documented by: Albuterol Sulfate (Ventolin Aerosols) 2.5 mg INHALATION Q6HWA.RT [facility] Last Admin: 02/09/20 07:12 Dose: 2.5 mg Documented by: Albuterol Sulfate (Ventolin Aerosols) 2.5 mg INHALATION Q6H PRN PRN PRN Reason: WHEEZING Budesonide (Pulmicort Aerosol) 0.5 mg INHALATION Q12H.RT [facility] Last Admin: 02/09/20 07:12 Dose: 0.5 mg Documented by: Docusate Sodium (Colace) 100 mg PO BID [facility] Last Admin: 02/09/20 09:14 Dose: 100 mg Documented by: Enoxaparin Sodium (Lovenox) 40 mg SC DAILY [facility] Last Admin: 02/09/20 09:14 Dose: 40 mg Documented by: Lactated Ringer's () 1,000 mls @ 40 mls/hr IV .Q25H [facility] Last Infusion: 02/09/20 06:23 Dose: 0 mls/hr Documented by: Ibuprofen (Motrin) 600 mg PO Q6H PRN PRN PRN Reason: Pain Score 1-10/10 Metoprolol Tartrate (Lopressor (Beta Brannon)) 50 mg PO DAILY@2200 [facility] Nutritional Formula (Lactose Free) (Ensure Clear) 120 ml PO 4X/DAY [facility] Ondansetron HCl (Zofran Odt) 4 mg PO Q6H PRN PRN PRN Reason: NAUSEA Medical Necessity - Tobacco Use Smoking Status: Current every day smoker Tobacco Use: Cigarettes Assessment/Plan All Active Problems (Last Reviewed 01/23/20 @ 14:00 by Courtney Alvarado) Cecum mass (Acute) 64-year-old male status post right laparoscopic hemicolectomy 1. Patient seen is doing well this morning. He is still belching with no flatus. Encourage ambulation. Continue clears until he started to pass flatus. Once that is occurring I will advance his diet and discharge home. Continue home medications. Start Lovenox. Joey Crain MD Pager: [facility] [address] [place] [address], [address] [place] [address] Office:
[2020-02-09] MEDS: Ensure Clear 120 ML Liquid PO ×3 (09:57→17:30)
--- NOTE | 2020-02-09 13:50 | CASEMGMT ---
RN STEPHANIA Face to Face with patient for initial transition planning/care coordination assessment. RN CM introduced self and role at [facility]. Patient sitting in chair, alert and oriented. Patient willing to participate in assessment and is able to answer all questions appropriately. Care providers, pharmacy, and demographics verified. Patient wishes to discharge home, denies need for home health at this time. Patient states he has no further needs or concerns at this time. CM to follow for discharge planning needs that may arise. PCP: Martínez Specialists: Melissa data entry coordinator Preferred Pharmacy: [facility] Insurance: MMO, MCRA Prescription Benefit: yes Living Will/HPOA: none LNOK: significant other Living Arrangements: Patient lives with significant other in a 2 story house. Patient is independent at home. Transportation: Self/significant other DME/HHC: Patient states he has shower chair at home. Patient denies previous HHC. Disposition Plan: Patient to discharge home with family support and follow-up plans in place. Cary TORRES, RN, CM
[2020-02-09] MEDS: Ibuprofen 600 MG Tablet PO ×2 (17:37→23:49)
[2020-02-09] MEDS: Metoprolol Tartrate 50 MG Tablet PO (21:57)
[2020-02-10] VITALS (8 sets, daily range): BP systolic 111–164; BP diastolic 61–93; PULSE 56–78; RESP 18–20; TEMP 36.7–37.1; O2SAT 93–97
[2020-02-10] MEDS: Ibuprofen 600 MG Tablet PO (06:10)
[2020-02-10] MEDS: Albuterol 2.5 MG/3 ML VIAL.NEB. INHALATION ×3 (06:43→19:29)
[2020-02-10] MEDS: Budesonide Respules 0.5 MG/2 ML AMPUL.NEB. INHALATION ×2 (06:43→19:29)
[2020-02-10 06:45] LABS: Absolute Lymphocyte Count 2.73 X10^3/uL (0.83-4.51); Absolute Neutrophil Count 7.2 X10^3/uL (2.0-7.7); Basophil# 0.05 X10^3/uL; Basophil% 0.4 % (0-1); Eosinophils% 1.8 % (0-5); Hematocrit 41.3 % (40-54); Hemoglobin 13.7 g/dL (13.0-16.5); Lymphocyte # 2.73 X10^3/ul (4.0); Lymphocyte % 24.1 % (19-41); Mean Corp Hgb Conc 33.2 g/dL (32-36); Mean Corpuscular Hgb 30.2 pg (27.0-32.0); Monocyte# 1.15 X10^3/uL; Monocyte% 10.2 % (0-10); NRBC Flagged by Analyzer 0 % (0-5); Neutrophil # 7.16 X10^3/uL (2.7-7.7); Neutrophil % 63.1 % (47-70); Platelet Count 218 K/mm3 (150-450); RBC Distribution Width CV 14.5 % (11.6-14.6); RBC Distribution Width SD 48.4 fl (35.1-43.9); Red Blood Count 4.54 M/mm3 (4.6-6.2); White Blood Count 11.3 K/mm3 (4.4-11.0)
--- NOTE | 2020-02-10 07:06 | PCM.PN.SRG ---
Subjective: Patient is still having belching but no nausea or vomiting and tolerating clears. Abdominal pain is minimal and well controlled with Motrin. He is not passing any flatus yet. - Physical Exam Vitals/I&O's: Vital Signs Temp Pulse Resp BP Pulse Ox 98.4 F 61 18 111/61 93 02/10/20 02:00 02/10/20 02:00 02/10/20 02:00 02/10/20 02:00 02/10/20 02:00 Oxygen Flow Rate (L/min) 6 Oxygen Delivery Method Room Air Weight: 195 lb 15.855 oz Body Mass Index (BMI) 26.6 Intake and Output for Last 24 Hours 02/08/20 02/09/20 02/10/20 23:59 23:59 23:59 Intake Total 3192.32 / 3192.32 986 / 1526 1540 / 1540 Output Total 650 / 650 1425 / 2550 1900 / 1900 Balance 2542.32 / 2542.32 -439 / -1024 -360 / -360 General: Alert, Oriented x3, Cooperative Neck: No JVD Cardiovascular: Regular rate, Regular Rhythm Abdomen: Soft, Non Tender, Non-Distended Laboratory Results 02/10/20 06:16: WBC 11.3 H, RBC 4.54 L, Hgb 13.7, Hct 41.3, MCV 91.0, MCH 30.2, MCHC 33.2, RDW Std Deviation 48.4 H, RDW Coeff of Carlos Manuel 14.5, Plt Count 218, MPV 11.0, Immature Gran % (Auto) 0.400, Neut % (Auto) 63.1, Lymph % (Auto) 24.1, [place] % (Auto) 10.2 H, Eos % (Auto) 1.8, Baso % (Auto) 0.4, Absolute Neuts (auto) 7.2, Absolute Lymphs (auto) 2.73, Nucleated RBC % 0 02/10/20 06:16: Sodium Pending, Potassium Pending, Chloride Pending, Carbon Dioxide Pending, Anion Gap Pending, BUN Pending, Creatinine Pending, Est GFR (MDRD) Af Amer Pending, Est GFR (MDRD) Non-Af Pending, BUN/Creatinine Ratio Pending, Glucose Pending, Calcium Pending Current Medications Acetaminophen (Tylenol) 1,000 mg PO Q6 [facility] Last Admin: 02/10/20 06:11 Dose: Not Given Documented by: Albuterol Sulfate (Ventolin Aerosols) 2.5 mg INHALATION Q6HWA.RT [facility] Last Admin: 02/10/20 06:43 Dose: 2.5 mg Documented by: Albuterol Sulfate (Ventolin Aerosols) 2.5 mg INHALATION Q6H PRN PRN PRN Reason: WHEEZING Budesonide (Pulmicort Aerosol) 0.5 mg INHALATION Q12H.RT [facility] Last Admin: 02/10/20 06:43 Dose: 0.5 mg Documented by: Docusate Sodium (Colace) 100 mg PO BID [facility] Last Admin: 02/09/20 21:57 Dose: 100 mg Documented by: Enoxaparin Sodium (Lovenox) 40 mg SC DAILY [facility] Last Admin: 02/09/20 09:14 Dose: 40 mg Documented by: Lactated Ringer's () 1,000 mls @ 40 mls/hr IV .Q25H [facility] Last Infusion: 02/09/20 06:23 Dose: 0 mls/hr Documented by: Ibuprofen (Motrin) 600 mg PO Q6H PRN PRN PRN Reason: Pain Score 1-10/10 Last Admin: 02/10/20 06:10 Dose: 600 mg Documented by: Metoprolol Tartrate (Lopressor (Beta Brannon)) 50 mg PO DAILY@2200 [facility] Last Admin: 02/09/20 21:57 Dose: 50 mg Documented by: Nutritional Formula (Lactose Free) (Ensure Clear) 120 ml PO 4X/DAY [facility] Last Admin: 02/09/20 21:58 Dose: Not Given Documented by: Ondansetron HCl (Zofran Odt) 4 mg PO Q6H PRN PRN PRN Reason: NAUSEA Medical Necessity - Tobacco Use Smoking Status: Current every day smoker Tobacco Use: Cigarettes Assessment/Plan All Active Problems (Last Reviewed 01/23/20 @ 14:00 by Courtney Alvarado) Cecum mass (Acute) 64-year-old male status post laparoscopic right hemicolectomy 1. Patient appears to be doing well. The patient is not passing flatus yet but he does have bowel sounds. He is having belching but no nausea or vomiting. Abdominal pain is well controlled on Motrin. Once he passes flatus I will advance his diet and discharge home. Joey Crain MD Pager: [facility] [address] [place] [address], [address] [place] [address] Office:
[2020-02-10 07:12] LABS: Anion Gap 5 (5-15); BUN 16 mg/dL (7-18); BUN/Creat Ratio 14.7 RATIO (10-20); Calcium,Total 9.1 mg/dL (8.5-10.1); Chloride 109 mmol/L (98-107); Creatinine, Serum 1.09 mg/dL (0.70-1.30); EST Glomerular Filtration Rate 72 mL/min (>60); Est Glom Filt Rate - Afr Amer 87 mL/min (>60); Estimated Creatinine Clearance 74.16 ml/min; Glucose 105 mg/dL (74-106); Potassium 4.4 mmol/L (3.5-5.1); Sodium Level 140 mmol/L (136-145)
[2020-02-10] MEDS: Docusate Sodium 100 MG Capsule PO ×2 (10:40→22:34)
[2020-02-10] MEDS: Acetaminophen 500 MG Tablet 1000 MG PO ×3 (11:56→23:25)
[2020-02-10] MEDS: Metoprolol Tartrate 50 MG Tablet PO (22:34)
[2020-02-11 03:07] VITALS: BP 162/91; PULSE 59; RESP 18; TEMP 36.3; O2SAT 93
[2020-02-11] MEDS: Acetaminophen 500 MG Tablet 1000 MG PO (05:28)
--- NOTE | 2020-02-11 06:05 | RAD_ITS ---
STUDY: X-RAY - ABDOMEN/PELVIS REASON FOR EXAM: Male, 64 years old. unable to pass gas TECHNIQUE: 3 views COMPARISON: None. FINDINGS: Normal visualized lung bases. There are distended loops of large and small bowel with multiple air-fluid levels suggesting generalized ileus. Mechanical obstruction considered less likely. There is NO bowel wall thickening. There is no demonstrated free abdominal air. The visualized liver, spleen and kidneys are grossly normal in size and morphology. Normal soft tissue structures. Normal visualized osseous structures. RAD/Abd Inc Decub and/or Erect IMPRESSION: There are distended loops of large and small bowel with multiple air-fluid levels suggesting generalized ileus. Mechanical obstruction considered less likely. There is NO bowel wall thickening. There is no demonstrated free abdominal air. Electronically Signed: Darius Glover MD at 7:09 EDT , Service support ,
[2020-02-11 07:24] VITALS: PULSE 80; RESP 16; O2SAT 96
[2020-02-11] MEDS: Budesonide Respules 0.5 MG/2 ML AMPUL.NEB. INHALATION (07:24)
[2020-02-11] MEDS: Albuterol 2.5 MG/3 ML VIAL.NEB. INHALATION (07:24)
--- NOTE | 2020-02-11 07:47 | PN.SURG_ITS ---
Subjective: Patient reports no flatus but he did have a liquid bowel movement. No nausea or vomiting but he is still having belching and indigestion. No abdominal pain. - Physical Exam Vitals/I&O's: Vital Signs Temp Pulse Resp BP Pulse Ox 97.4 F L 59 L 18 162/91 H 93 02/11/20 03:07 02/11/20 03:07 02/11/20 03:07 02/11/20 03:07 02/11/20 03:07 Oxygen Flow Rate (L/min) 6 Oxygen Delivery Method Room Air Weight: 195 lb 15.855 oz Body Mass Index (BMI) 26.6 Intake and Output for Last 24 Hours 02/09/20 02/10/20 02/11/20 23:59 23:59 23:59 Intake Total 986 / 1526 3460 / 3460 700 / 700 Output Total 1425 / 2550 2950 / 2950 700 / 700 Balance -439 / -1024 510 / 510 0 / 0 General: Alert, Oriented x3 Lungs: Normal air movement Cardiovascular: Regular rate, Regular Rhythm Abdomen: Soft Current Medications Acetaminophen (Tylenol) 1,000 mg PO Q6 [facility] Last Admin: 02/11/20 05:28 Dose: 1,000 mg Documented by: Albuterol Sulfate (Ventolin Aerosols) 2.5 mg INHALATION Q6HWA.RT [facility] Last Admin: 02/11/20 07:24 Dose: 2.5 mg Documented by: Albuterol Sulfate (Ventolin Aerosols) 2.5 mg INHALATION Q6H PRN PRN PRN Reason: WHEEZING Bisacodyl (Dulcolax) 10 mg RECTAL X1 ONE Stop: 02/11/20 07:47 Budesonide (Pulmicort Aerosol) 0.5 mg INHALATION Q12H.RT [facility] Last Admin: 02/11/20 07:24 Dose: 0.5 mg Documented by: Calcium Carbonate (Tums) 1,000 mg PO Q4H PRN PRN PRN Reason: INDIGESTION Docusate Sodium (Colace) 100 mg PO BID [facility] Last Admin: 02/10/20 22:34 Dose: 100 mg Documented by: Enoxaparin Sodium (Lovenox) 40 mg SC DAILY [facility] Last Admin: 02/10/20 10:41 Dose: Not Given Documented by: Ibuprofen (Motrin) 600 mg PO Q6H PRN PRN PRN Reason: Pain Score 1-10 Last Admin: 02/10/20 06:10 Dose: 600 mg Documented by: Metoprolol Tartrate (Lopressor (Beta Brannon)) 50 mg PO DAILY@2200 [facility] Last Admin: 02/10/20 22:34 Dose: 50 mg Documented by: Nutritional Formula (Lactose Free) (Ensure Clear) 120 ml PO 4X/DAY [facility] Last Admin: 02/10/20 22:30 Dose: Not Given Documented by: Ondansetron HCl (Zofran Odt) 4 mg PO Q6H PRN PRN PRN Reason: NAUSEA Pantoprazole Sodium (Protonix) 20 mg PO BID [facility] Medical Necessity - Tobacco Use Smoking Status: Current every day smoker Tobacco Use: Cigarettes Assessment/Plan All Active Problems (Last Reviewed 01/23/20 @ 14:00 by Courtney Alvarado) Cecum mass (Acute) 64-year-old male status post right hemicolectomy 1. Patient is having postoperative ileus due to surgery. The patient is not passing any flatus. I will give him a suppository to see if I can stimulate the GI tract. Patient did have a liquid bowel movement today. I will try a full liquid diet and some Tums. If the starts passing flatus I will advance his diet and discharge home. Joey Crain MD Pager: [facility] [address] [place] [address], [address] [place] [address] Office:
[2020-02-11 09:05] VITALS: BP 147/98; PULSE 59; RESP 16; TEMP 36.7; O2SAT 96
--- NOTE | 2020-02-11 09:06 | DCINST_ITS ---
You will use the following diet at home:: Regular Your food should be the consistency of: Regular Discharge Activity: May Shower Lifting Restrictions: 20 lbs for 4 weeks Call your doctor if your incision/area has: Continuous Slow Oozing, Sudden Increased Bleeding, Increased Pain/ Swelling, Increased Redness, Foul Smelling Discharge, Swelling at the incision site Call your doctor if you observe: Fever of 101 or Higher Remove Dressing in (days):: 1 - Leave steri strips until follow up. Remove bandages tomorrow. May shower over steri strips. Cleanse incision/area with: Soap & Water Allergies/Adverse Reactions: Allergies No Known Allergies Allergy (Verified 02/08/20 06:50) Medications to take at Discharge Albuterol Inhaler [Ventolin Hfa] 2 puff INHALATION Q6H PRN PRN 01/15/20 Budesonide/Formoterol 160/4.5 [Symbicort 160/4.5 Mcg Inhaler (SP)] 2 puff INHALATION QHS 01/15/20 metoprolol tartrate 50 mg tablet 50 mg PO DAILY 01/23/20 Ibuprofen [Motrin] 600 mg PO Q6H PRN PRN tablet 02/11/20 Primary Care Physician: Jesus Soliz MD [Primary Care Provider] - Test Results: Test results from this visit will be discussed in further detail at your follow- up appointment, if applicable. Please Follow Up With: Joey Crain MD When: Please call to schedule 1 week follow up appointment. [phone]
[2020-02-11] MEDS: Bisacodyl 10 MG Suppository RECTAL (10:14)
[2020-02-11] MEDS: Docusate Sodium 100 MG Capsule PO (10:15)
[2020-02-11] MEDS: Pantoprazole Sodium 20 MG Tablet PO (10:16)
[2020-02-11 11:31] VITALS: BP 147/87; PULSE 79; RESP 16; TEMP 36.8; O2SAT 95
--- NOTE | 2020-02-12 07:32 | PCM.DC.SUM ---
Discharge Date and Diagnosis Date of Admission: 02/08/20 Date of Discharge: 02/11/20 Hospital Course and Treatment Imaging Results: Clinical Impression(s) from Imaging Studies Abdomen X-Ray 02/11/20 06:05 IMPRESSION: There are distended loops of large and small bowel with multiple air-fluid levels suggesting generalized ileus. Mechanical obstruction considered less likely. There is NO bowel wall thickening. There is no demonstrated free abdominal air. 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 Postoperatively the patient was admitted to the floor. He was observed until he started passing flatus and bowel movements. He was then started on a regular diet and discharged home in stable condition. The patient had a mild postoperative ileus which complicated his course but other than that he recovered well. - Physical Exam Vitals/I&O's: Vital Signs Temp Pulse Resp BP Pulse Ox 98.3 F 79 16 147/87 H 95 02/11/20 11:31 02/11/20 11:31 02/11/20 11:31 02/11/20 11:31 02/11/20 11:31 Oxygen Flow Rate (L/min) 6 Oxygen Delivery Method Room Air Weight: 195 lb 15.855 oz Body Mass Index (BMI) 26.6 Intake and Output for Last 24 Hours 02/10/20 02/11/20 02/12/20 23:59 23:59 23:59 Intake Total 3460 / 3460 1050 / 1050 Output Total 2950 / 2950 700 / 700 Balance 510 / 510 350 / 350 Discharge Activity: May Shower Call your doctor if your incision/area has: Continuous Slow Oozing, Sudden Increased Bleeding, Increased Pain/ Swelling, Increased Redness, Foul Smelling Discharge, Swelling at the incision site Call your doctor if you observe: Fever of 101 or Higher Remove Dressing in (days):: 1 - Leave steri strips until follow up. Remove bandages tomorrow. May shower over steri strips. Cleanse incision/area with: Soap & Water Home Medications: Medications to take at Discharge Albuterol Inhaler [Ventolin Hfa] 2 puff INHALATION Q6H PRN PRN 01/15/20 Budesonide/Formoterol 160/4.5 [Symbicort 160/4.5 Mcg Inhaler (SP)] 2 puff INHALATION QHS 01/15/20 metoprolol tartrate 50 mg tablet 50 mg PO DAILY 01/23/20 Ibuprofen [Motrin] 600 mg PO Q6H PRN PRN tab 02/11/20 Primary Care Physician: Jesus Soliz MD [Primary Care Provider] - Please Follow Up With: Joey Crain MD When: Please call to schedule 1 week follow up appointment. [phone] Medical Necessity - Tobacco Use Smoking Status: Current every day smoker Tobacco Use: Cigarettes Meaningful Use Info Meaningful Use Diagnoses (Choose all that apply): None applicable
== END 2020-02-11 13:37 | disposition home or self-care (01) | DRG 330 ==
LOC: ACINP 06:43 → MS3 12:44
PROVIDERS: Anesthesiology; Admitting Provider Surgery; PCP Family Medicine; Referring Provider Surgery; Visit Provider Surgery
PROC: 0DTF4ZZ Resection of Right Large Intestine, Percutaneous Endoscopic Approach (ICD-10-PCS; CPT 44205; principal; 2020-02-08 08:40)
DX: K63.89 Other specified diseases of intestine (principal); K91.89 Other postprocedural complications and disorders of digestive system; K56.7 Ileus, unspecified; I10 Essential (primary) hypertension; J44.9 Chronic obstructive pulmonary disease, unspecified; F17.210 Nicotine dependence, cigarettes, uncomplicated; Z79.899 Other long term (current) drug therapy; Z83.79 Family history of other diseases of the digestive system
CPT/HCPCS: 36415; 74019; 80048; 82962; 83735; 85025; 85027; 87635; 88307; 88309; 93005; 94640; 94762; 99251; G2023; J7050; J7120; C1760; G0463; J2405; U0003

== ENCOUNTER 2023-02-25 08:08 | Emergency (ER) | payer OTHER, SELFPAY ==
[2023-02-25 08:08] VITALS: BP 151/110; PULSE 89; RESP 18; TEMP 35.9; O2SAT 96; BMI 29.7
[2023-02-25 08:26] VITALS: BP 161/107; PULSE 79; RESP 12; O2SAT 98
--- NOTE | 2023-02-25 08:35 | RAD_ITS ---
HISTORY: chest pain. TECHNIQUE: XR Chest 1 View. COMPARISON: None. FINDINGS: CARDIOMEDIASTINAL BORDERS: Cardiac silhouette within normal limits in size. Mediastinal contour unremarkable. LUNGS: Radiographically clear. PLEURA: No pleural effusion or pneumothorax seen. OSSEOUS STRUCTURES: Degenerative changes. RAD/Chest 1 View (Portable) IMPRESSION: No acute cardiopulmonary process identified. Electronically Signed: Tana Bolaños MD at 9:14 EDT ,
[2023-02-25 08:57] LABS: Absolute Lymphocyte Count 2.21 X10^3/uL (0.83-4.51); Absolute Neutrophil Count 4.4 X10^3/uL (2.0-7.7); Basophil# 0.06 X10^3/uL; Basophil% 0.8 % (0-1); Eosinophil# 0.18 X10^3/uL; Eosinophils% 2.4 % (0-5); Hematocrit 44.8 % (40-54); Lymphocyte # 2.21 X10^3/ul (0.83-4.51); Lymphocyte % 29.2 % (19-41); Mean Corp Hgb Conc 33.5 g/dL (32-36); Mean Corpuscular Hgb 30.2 pg (27.0-32.0); Mean Corpuscular Volume 90.1 fL (80-94); Monocyte# 0.69 X10^3/uL; Monocyte% 9.1 % (0-10); NRBC Flagged by Analyzer 0 % (0-5); Neutrophil # 4.41 X10^3/uL (2.7-7.7); Neutrophil % 58.2 % (47-70); Platelet Count 234 K/mm3 (150-450); RBC Distribution Width CV 13.6 % (11.6-14.6); RBC Distribution Width SD 44.7 fl (35.1-43.9); Red Blood Count 4.97 M/mm3 (4.6-6.2); White Blood Count 7.6 K/mm3 (4.4-11.0)
--- NOTE | 2023-02-25 08:59 | ED.VIS.GI ---
HPI HPI - GI History of Present Illness Chief Complaint: Chest Pain Narrative Narrative: 67-year-old male presenting with left-sided abdominal/rib pain. He states the pain is located just under his left lateral ribs. He states initially the pain started in his left lower flank on weekend which was the . This is roughly 25 days ago. He states it slowly migrated up under his left rib. He denies any trauma. He states initially it felt like a sunburn although there was no sunburn present. The pain is now in his left upper quadrant/epigastric region. He states he saw his primary care physician nurse practitioner and they recommended a CT with and without contrast however his insurance was not approving it. He states that today he started to note the pain worsening so he decided to come to the ER. He denies nausea, vomiting. He denies fever, chills. He denies constipation or diarrhea. He denies urinary complaints. 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 He states he lost 13 inches of bowel at that point. [facility] Medical History COPD (chronic obstructive pulmonary disease) Hypertension Home Medications albuterol sulfate 90 mcg/actuation aerosol inhaler 2 puff inhalation Q6H PRN PRN Wheezing 01/15/20 [History Last Taken 01/16/20 10:27 2 PUFF] budesonide-formoterol HFA 160 mcg-4.5 mcg/actuation aerosol inhaler 2 puff inhalation QHS copd 01/15/20 [History Last Taken Unknown] metoprolol tartrate 50 mg tablet 50 mg PO DAILY BP 01/23/20 [History Last Taken Unknown] ibuprofen 600 mg tablet 600 mg PO Q6H PRN PRN Pain Score 1-06/1502/11/20 [Rx Last Taken Unknown] Allergy/AdvReac Type Severity Reaction Status Date / Time No Known Allergies Allergy Verified 02/08/20 06:50 Family History Father CAD (coronary artery disease) Surgical History History of bowel resection Status post skin graft Social History Smoking Status: Current every day smoker tobacco type: cigarettes alcohol intake: never ROS ROS ED Constitutional Constitutional ED: Denies chills or fever(s) ENT ENT ED: Denies rhinorrhea or sore throat Cardiovascular Cardiovascular: Reports chest pain; Denies palpitations or paroxysmal nocturnal dyspnea Respiratory/Chest Respiratory/Chest: Denies cough, dyspnea or paroxysmal nocturnal dyspnea Gastrointestinal Gastrointestinal: Reports abdominal pain; Denies nausea or vomiting Genitourinary Genitourinary ED: Denies dysuria or hematuria Musculoskeletal Musculoskeletal: Denies arthralgias or back pain Integumentary Denies abscess or Abrasions Neurologic Neurologic: Denies headache(s) or paresthesias Psychiatric Psychiatric: Denies depression EXAM Physical Exam Const Vital Signs: 02/25/23 08:08 02/25/23 08:26 02/25/23 08:26 Temperature 96.7 F L Temperature Source Temporal Pulse Rate 89 79 Respiratory Rate 18 12 Blood Pressure 151/110 H 161/107 H Blood Pressure Mean 123 125 Pulse Ox 96 98 Oxygen Delivery Method Room Air Room Air Room Air Positive well nourished General Appearance ED: Negative for pallor HEENT Reports moist mucous membranes Eyes PERRL and EOMs intact bilaterally Neck no lymphadenopathy Resp normal respiratory effort and clear to auscultation bilaterally Cardio regular rate and regular rhythm GI Palpation: tender epigastric and LUQ Extremity full ROM Neuro CN's II-XII intact bilaterally Sensorium / Orientation: alert Psych mental status grossly normal and thought process normal Skin General Skin Exam: Negative for jaundice or pallor MDM MDM MDM Narrative Medical decision making narrative: Patient with left upper quadrant/left lower rib pain for about 25 days. No nausea, vomiting, constipation, diarrhea. No fevers or chills. Differential includes but is not limited to acute coronary syndrome, PE, pneumonia, rib fracture, pneumothorax, diverticulitis, colitis, kidney stone. CBC to assess white blood cell count, hemoglobin, platelets. BMP to assess renal function, electrolytes, glucose. LFTs to assess liver function. High-sensitivity troponin and EKG to assess for ischemia. Chest x-ray to assess for pneumonia or pneumothorax. D-dimer to assess for PE. CBC shows normal white blood cell count of 7.6. Hemoglobin hematocrit are stable. Platelets are normal. Renal function and electrolytes unremarkable. LFTs are normal. D-dimer was negative. Lipase negative. Given the patient's location of pain I did get a CT of the chest abdomen pelvis which was negative for anything acute. He has some pulmonary nodules which have not changed. He also has adrenal nodules. Patient declined analgesia in the ER. I counseled him on the findings and I recommended that he follow-up for colonoscopy and upper endoscopy. He states he was to follow-up with Dr. Weston who did his surgery. Impression: 1. chest pain 2. Abdominal pain Lab Data Attestation: I reviewed the patient's lab results. Labs: Laboratory Results - last 24 hr 02/25/23 02/25/23 02/25/23 08:45 08:45 08:45 WBC 7.6 RBC 4.97 Hgb 15.0 Hct 44.8 MCV 90.1 MCH 30.2 MCHC 33.5 RDW Std Deviation 44.7 H RDW Coeff of Carlos Manuel 13.6 Plt Count 234 MPV 11.0 Immature Gran % (Auto) 0.300 Neut % (Auto) 58.2 Lymph % (Auto) 29.2 [place] % (Auto) 9.1 Eos % (Auto) 2.4 Baso % (Auto) 0.8 Absolute Neuts (auto) 4.4 Absolute Lymphs (auto) 2.21 Nucleated RBC % 0 D-Dimer Quant (PE/DVT) 0.48 Sodium 141 Potassium 4.8 Chloride 110 H Carbon Dioxide 27.0 Anion Gap 4 L BUN 21 H Creatinine 1.14 Estim Creat Clear Calc 66.05 Est GFR (MDRD) Af Amer 82 Est GFR (MDRD) Non-Af 68 BUN/Creatinine Ratio 18.4 Glucose 131 H Calcium 9.3 Total Bilirubin Direct Bilirubin AST ALT Alkaline Phosphatase Troponin I High Sens 5 Total Protein Albumin Globulin Lipase 02/25/23 08:45 WBC RBC Hgb Hct MCV MCH MCHC RDW Std Deviation RDW Coeff of Carlos Manuel Plt Count MPV Immature Gran % (Auto) Neut % (Auto) Lymph % (Auto) [place] % (Auto) Eos % (Auto) Baso % (Auto) Absolute Neuts (auto) Absolute Lymphs (auto) Nucleated RBC % D-Dimer Quant (PE/DVT) Sodium Potassium Chloride Carbon Dioxide Anion Gap BUN Creatinine Estim Creat Clear Calc Est GFR (MDRD) Af Amer Est GFR (MDRD) Non-Af BUN/Creatinine Ratio Glucose Calcium Total Bilirubin 0.50 Direct Bilirubin 0.10 AST 19 ALT 35 Alkaline Phosphatase 84 Troponin I High Sens Total Protein 7.5 Albumin 4.0 Globulin 3.5 Lipase 31 Radiography Diagnostic Testing: Clinical Impression(s) from Imaging Studies Chest X-Ray 02/25/23 08:35 IMPRESSION: No acute cardiopulmonary process identified. Electronically Signed: Tana Bolaños MD at 9:14 EDT Reading Location ID and State: [facility] / [place] Tel , Service support , Chest/Abdomen/Pelvis CT 02/25/23 09:13 IMPRESSION: Mild emphysema with stable 3 to 4 mm lingular and left lower lobe pulmonary nodules. Resection of cecal mass. Colonic diverticulosis without acute diverticulitis. Hepatic steatosis. Stable small bilateral adrenal nodules. Enlarged prostate gland. Electronically Signed: Tana Bolaños MD at 10:27 EDT , Discharge Plan Triage Chief Complaint: Chest Pain Other Complaint: Shortness of Breath ED Provider: Lucien Guillen Dx/Rx/DC Orders Instructions: ED Chest Pain, Noncardiac, ED Abdominal Pain Unkn Cause Male... Prescriptions: No Action metoprolol tartrate 50 mg tablet 50 mg PO DAILY albuterol sulfate 1 INHALER inhaler 2 puff inhalation Q6H PRN PRN (Reason: Wheezing) budesonide-formoterol 1 INHALER inhaler 2 puff inhalation QHS ibuprofen 600 MG tablet 600 mg PO Q6H PRN PRN (Reason: Pain Score 1-10/10) 0RF Primary Care Provider: Jesus Soliz Referrals: Joey Crain MD [Med Staff - Active Staff] - 3-5 Days Jesus Soliz MD [Primary Care Provider] - Disposition Disposition: Home, Self Care Discharge Date/Time: 02/25/23 10:45
[2023-02-25] MEDS: Aspirin 81 MG TAB.CHEW 324 MG PO (09:07)
[2023-02-25 09:09] LABS: D-Dimer Quantitative (DVT/PE) 0.48 FEU/ug/m (0.27-0.49)
--- NOTE | 2023-02-25 09:13 | CT_ITS ---
HISTORY: LUQ pain. History of COPD, bowel resection for cecal mass, hypertension, left abdomen/rib pain. TECHNIQUE: Helically acquired images were obtained of the chest, abdomen, and pelvis after the intravenous administration of 100mL Isovue-300. No oral contrast was administered. 2-D reformatted images provided. A radiation dose optimization technique was used for this scan. 1333 images. COMPARISON: XR same day, CT 01/15/2020 FINDINGS: ----Chest: LARGE AIRWAYS: Patent. LUNGS: Mild centrilobular emphysema and linear bibasilar scarring. 3 to 4 mm lingular and left lower lobe nodules, not increased from prior. PLEURA: No pneumothorax or significant pleural effusion. HEART AND PERICARDIUM: Heart within normal limits in size with coronary artery disease. No significant pericardial effusion. VESSELS: No thoracic aortic aneurysm or dissection flap. No large central central pulmonary embolism although study not performed with the pulmonary embolism protocol. MEDIASTINUM AND RADHA: Scattered small lymph nodes without pathologic enlargement. BONES: Mild degenerative change without acute osseous abnormality identified. T6 vertebral body hemangioma. ----Abdomen/Pelvis: BOWEL: Bowel nondilated. Resection of cecal mass with suture in the ascending colon. Colonic diverticula cyst without focal pericolonic inflammatory change. PERITONEUM: No significant free fluid. Scattered small lymph nodes. LIVER: Fatty infiltration. GALLBLADDER/BILIARY TREE: Gallbladder present. SPLEEN/PANCREAS: Homogeneous and nonenlarged. KIDNEYS: Unremarkable. ADRENAL GLANDS: Stable small nodules. VESSELS: No abdominal aortic aneurysm. Atherosclerosis of the abdominal aorta and its major branches. PELVIC ORGANS: 5.3 x 6.3 cm prostate gland with impression on the bladder base ABDOMINAL WALL: Fat-containing inguinal hernias. BONES: Degenerative change without suspicious osteoblastic or osteolytic lesion. CT/CT Chest, Abd, Pel w/Contrast IMPRESSION: Mild emphysema with stable 3 to 4 mm lingular and left lower lobe pulmonary nodules. Resection of cecal mass. Colonic diverticulosis without acute diverticulitis. Hepatic steatosis. Stable small bilateral adrenal nodules. Enlarged prostate gland. Electronically Signed: Tana Bolaños MD at 10:27 EDT ,
[2023-02-25 09:16] LABS: Anion Gap 4 (5-15); BUN 21 mg/dL (7-18); BUN/Creat Ratio 18.4 RATIO (10-20); Calcium,Total 9.3 mg/dL (8.5-10.1); Chloride 110 mmol/L (98-107); Creatinine, Serum 1.14 mg/dL (0.70-1.30); EST Glomerular Filtration Rate 68 mL/min (>60); Est Glom Filt Rate - Afr Amer 82 mL/min (>60); Estimated Creatinine Clearance 66.05 ml/min; Glucose 131 mg/dL (74-106); Potassium 4.8 mmol/L (3.5-5.1); Sodium Level 141 mmol/L (136-145); Troponin-I HS (w/2H Reflex) 5 pg/mL (3.0-78.0)
[2023-02-25 09:32] LABS: AST(SGOT) 19 U/L (15-37); Alanine Aminotransfer ALT/SGPT 35 U/L (16-61); Alkaline Phosphatase 84 U/L (45-117); Globulin 3.5 g/dL (2.2-4.2); Lipase 31 U/L (13-75); Protein, Total 7.5 g/dL (6.4-8.2)
[2023-02-25 10:52] LABS: Reflex Troponin-HS? (from REC) Y
== END 2023-02-25 10:45 | disposition home or self-care (01) ==
PROVIDERS: Emergency Provider Student in an Organized Health Care Education/Training Program; PCP Family Medicine; Visit Provider Student in an Organized Health Care Education/Training Program
DX: R07.81 Pleurodynia (principal); J44.9 Chronic obstructive pulmonary disease, unspecified; E27.8 Other specified disorders of adrenal gland; R10.12 Left upper quadrant pain; I10 Essential (primary) hypertension; F17.210 Nicotine dependence, cigarettes, uncomplicated
CPT/HCPCS: 71045; 71260; 74177; 80048; 80076; 83690; 84484; 85025; 85379; 93005; 99284; Q9967; A4216

== ENCOUNTER 2025-07-08 05:58 | Emergency (ER) | payer MEDICARE, OTHER, SELFPAY ==
[2025-07-08 05:59] VITALS: BP 166/88; PULSE 82; RESP 16; TEMP 36.4; O2SAT 96; BMI 26.7
--- NOTE | 2025-07-08 06:21 | EX.ED.DYSGE1 ---
HPI History of Present Illness Chief Complaint: Chest Pain Informant: patient Narrative Narrative: Patient is a 69-year-old male with past medical history of hypertension and COPD. He states on June 25 he was walking up the stairs when his dog ran up the stairs and accidentally caused him to trip. He states he fell down 3 stairs landing on his left side with his arm tucked by his side and up underneath his chest. He reports sudden pain to the anterior left chest wall when he hit the ground. He denies striking his head or any loss of consciousness. He denies any history of bleeding disorder or blood thinner use. He states there was no other injury and he was able to get back up shortly after the fall. He states that since that time he is been having persistent left-sided chest pain that is worse with motion as well as cough or sneezing. He states that he thought the pain would improve by this time but it has not and therefore he comes in for evaluation. He denies any repeat trauma and he states that there has been no fevers or chills. He denies any hematuria or dysuria. [facility] Medical History Hypertension COPD (chronic obstructive pulmonary disease) Home Medications ?Medication ?Instructions ?Recorded ?Last Taken ?Type albuterol sulfate 90 mcg/actuation 2 puff inhalation Q6H PRN PRN 01/15/20 01/16/20 10:27 History aerosol inhaler Wheezing 2 PUFF budesonide-formoterol HFA 160 2 puff inhalation QHS copd 01/15/20 Unknown History mcg-4.5 mcg/actuation aerosol inhaler aspirin 81 mg tablet,delayed 81 mg PO DAILY 03/01/23 Unknown History release (Adult Aspirin Regimen) losartan 100 mg tablet 100 mg PO DAILY 03/01/23 Unknown History rosuvastatin 5 mg tablet (Crestor) 5 mg PO DAILY 03/01/23 Unknown History sucralfate 1 gram tablet (Carafate) 1 g PO QACHS #60 tabs 03/01/23 Unknown Rx omeprazole 40 mg capsule,delayed See Rx Instructions .Route 04/12/23 Unknown Rx release .COMPLEX #30 caps amlodipine 5 mg tablet 5 mg PO DAILY 07/08/25 Unknown History oxycodone-acetaminophen 5 mg-325 1 tab PO Q6H PRN pain 5 days #20 07/08/25 Unknown Rx mg tablet (Percocet) tabs Allergy/AdvReac Type Severity Reaction Status Date / Time No Known Allergies Allergy Verified 07/08/25 06:07 Family History Father CAD (coronary artery disease) Surgical History History of bowel resection Status post skin graft Social History Smoking Status: Current every day smoker tobacco type: cigarettes alcohol intake: never ROS ROS ED Constitutional Constitutional ED: Denies chills or fever(s) Eyes Eyes: Denies blurry vision or change in vision ENT ENT ED: Denies sore throat Cardiovascular Cardiovascular: Reports other Details: Negative syncope ; Denies chest pain, palpitations or racing heartbeat Respiratory/Chest Respiratory/Chest: Denies cough or dyspnea Gastrointestinal Gastrointestinal: Denies abdominal pain, diarrhea, nausea or vomiting Genitourinary Genitourinary ED: Denies dysuria or hematuria Musculoskeletal Musculoskeletal: Reports other Details: Positive left chest wall pain ; Denies back pain or neck pain Integumentary Denies Abrasions or rash Neurologic Neurologic: Denies headache(s), paresthesias or weakness Hematologic/Lymphatic Hematologic/Lymphatic: Denies easy bleeding or easy bruising EXAM Physical Exam Const Vital Signs: 07/08/25 05:59 07/08/25 08:53 Temperature 97.6 F L 97.9 F Temperature Source Oral Pulse Rate 82 68 Respiratory Rate 16 17 Blood Pressure 166/88 H 136/91 H Blood Pressure Mean 114 106 Pulse Ox 96 96 Oxygen Delivery Method Room Air Positive well nourished and well developed General Appearance ED: well developed; Negative for pallor HEENT HEENT Narrative: Normocephalic atraumatic No signs of depressed or basilar skull fracture Eyes PERRL and EOMs intact bilaterally General Eye ED: Negative for scleral icterus Neck supple Neck Narrative: No bony deformity or step-off of the cervical spine No midline tenderness to palpation Chest Wall Chest Narrative: There is reproducible left anterior chest wall pain with palpation along rib regions 4-6. This pain extends down to rib region 8-9 underneath the left axilla No overlying abrasions or ecchymosis or erythema or warmth to suggest trauma or infection No subcutaneous emphysema noted Resp normal respiratory effort Resp Narrative: Breath sounds are diminished throughout slightly greater on the left with faint rhonchi noted in the left lower lobe No signs of respiratory distress however Cardio regular rate and regular rhythm Rate: other Other Details: Heart is regular rate and rhythm Radial and carotid pulses are equal and symmetric GI normal to inspection, nondistended, normoactive bowel sounds, non-tender, non-distended and no masses GI Narrative: No voluntary guarding or rigidity or pulsatile mass Auscultation: normoactive bowel sounds Palpation: soft Back/Spine no CVA tenderness Extremity normal to inspection Extremity Narrative: No signs of long bone injury such as bony deformity or joint effusion Patient is able to move all extremities without difficulty or pain Neuro oriented x3, CN's II-XII intact bilaterally and no sensory deficits noted Sensorium / Orientation: alert Motor Exam: strength 5/5 throughout Psych mental status grossly normal Skin no rashes or lesions noted and no wounds Skin Narrative: No soft tissue changes to suggest trauma or infection General Skin Exam: Negative for jaundice or pallor MDM MDM MDM Narrative Medical decision making narrative: Patient arrived to ER hypertensive but has a past medical history of this. He reported left chest wall pain after mechanical fall roughly 14 days ago. As the fall was mechanical I felt no need for cardiac or syncope workup. Moreover he did not strike his head he does not have history of bleeding disorder nor does he take blood thinners and my concern for an underlying skull fracture or traumatic subarachnoid or subdural hemorrhage is low and do not feel the need for head CT. It has been 10 to 14 days since the initial injury and patient denies there is been no further trauma. With the report of persistent left-sided chest pain there is concern that he has rib fractures versus secondary pneumonia or a pneumothorax. The pain is reproducible with palpation and motion indicating musculoskeletal cause and I have low concern that his pain is atypical acute coronary syndrome in nature and therefore do not feel the need for a EKG or cardiac workup. Also have low concern that the pain is related to potential pulmonary embolus or dissection based on the history and exam so I do not feel the need for a CTA. Based on the prolonged timeframe from the initial trauma I do feel a better picture is warranted with a noncontrast CT so this was ordered. The radiologist documented nodules of the lung field consistent with history of COPD and patient also states that these nodules have been known and have been present for years. The radiologist did not note any type of rib fracture but on my independent interpretation I do feel the patient has a left fourth rib fracture that was missed. This correlates with his location of pain on physical exam as well. However as there is no pneumothorax or hemothorax or pneumonia and he is not in respiratory distress there is no further intervention needed other than pain control and therefore is otherwise safe for discharge with prescribed medication. History & Record Review Discussion w/independent historian: Patient Radiography Diagnostic Testing: Clinical Impression(s) from Imaging Studies Chest CT 07/08/25 06:35 IMPRESSION: No acute abnormality. Multiple pulmonary micro nodules. Optional [address] follow-up if clinically indicated as per Fleischner society guidelines. Adrenal adenoma on the right and probable adrenal adenoma on the left as well. Additional findings as above. Reading Location: [facility] CT of the chest without contrast as interpreted by the emergency medicine physician reveals a minimally displaced left fourth rib fracture without pneumothorax or hemothorax or infiltrate Discharge Plan Triage Chief Complaint: Chest Pain ED Provider: Hola Verde Dx/Rx/DC Orders Clinical Impression: Left rib fracture, Hypertension, COPD (chronic obstructive pulmonary disease) Instructions: ED Rib Fracture Prescriptions: New oxycodone-acetaminophen [Percocet] 5-325 mg tablet 1 tab PO Q6H PRN (Reason: pain) 5 Days Qty: 20 0RF No Action aspirin [Adult Aspirin Regimen] 81 mg tablet,delayed release (DR/EC) 81 mg PO DAILY rosuvastatin [Crestor] 5 mg tablet 5 mg PO DAILY losartan 100 mg tablet 100 mg PO DAILY sucralfate [Carafate] 1 gram tablet 1 g PO QACHS Qty: 60 0RF albuterol sulfate 1 INHALER inhaler 2 puff inhalation Q6H PRN PRN (Reason: Wheezing) budesonide-formoterol 1 INHALER inhaler 2 puff inhalation QHS amlodipine 5 mg tablet 5 mg PO DAILY omeprazole 40 mg capsule,delayed release(DR/EC) See Rx Instructions .ROUTE .COMPLEX Qty: 30 1RF Dose Instruction: TAKE 1 CAPSULE BY MOUTH EVERY DAY Rx Instructions: TAKE 1 CAPSULE BY MOUTH EVERY DAY Primary Care Provider: Jesus Soliz Referrals: Jesus Soliz MD [Primary Care Provider, Family Practice] Activity Restrictions/Additional Instructions: Your CT scan did not reveal a hole in your lung known as a pneumothorax or sign of infection. There is a rib fracture noted which correlates with your history of fall and pain. This can take 4 to 6 weeks or sometimes longer to heal. Continue to make sure you are taking deep inspirations to prevent a developing pneumonia and use the prescribed medication for pain control. You can also use topical treatments such as Voltaren cream or lidocaine patches. Follow-up with your family doctor for repeat evaluation and return to the ER should you have any further concerns Print Language: Guinean Disposition Disposition: Home, Self Care Discharge Date/Time: 07/08/25 08:55
--- NOTE | 2025-07-08 06:35 | CT_ITS ---
PROCEDURE: CT/Chest without Contrast
[2025-07-08 08:53] VITALS: BP 136/91; PULSE 68; RESP 17; TEMP 36.6; O2SAT 96
== END 2025-07-08 08:55 | disposition home or self-care (01) ==
PROVIDERS: Emergency Provider Emergency Medicine; PCP Family Medicine; Visit Provider Emergency Medicine
DX: S22.32XA Fracture of one rib, left side, initial encounter for closed fracture (principal); J44.9 Chronic obstructive pulmonary disease, unspecified; W10.9XXA Fall (on) (from) unspecified stairs and steps, initial encounter; I10 Essential (primary) hypertension; Z79.899 Other long term (current) drug therapy
CPT/HCPCS: 71250; 99282